=== PATIENT | male | born 1970 | race Hispanic/Latino ===

== ENCOUNTER → 2018-01-15 | Outpatient (CLI) | payer OTHER ==
[~2018-01-15] MED LIST: AEC81 PO; CHOL4PAC21 PO; DICY20 PO; LISI-617 PO; METO-391 PO
[2018-01-15 11:26] LABS: OCCULT BLOOD STOOL SINGLE ONLY POSITIVE (NEGATIVE)
== END | disposition home or self-care (01) ==
LOC: LAB 09:40
PROVIDERS: ATTEND Internal Medicine
DX: K90.9 Intestinal malabsorption, unspecified (principal); R19.7 Diarrhea, unspecified; F32.9 Major depressive disorder, single episode, unspecified; I10 Essential (primary) hypertension; E78.5 Hyperlipidemia, unspecified; I48.0 Paroxysmal atrial fibrillation; K21.9 Gastro-esophageal reflux disease without esophagitis
CPT/HCPCS: 36415; 82270; 82941; 84260; 87046; 87177; 87205; 87324

== ENCOUNTER 2018-02-19 14:33 | Inpatient (IN) | payer OTHER ==
[~2018-02-19] VITALS: Ht 180.3 cm; Wt 119.8 kg
[2018-02-19 14:57] LABS: BASOPHILS % (AUTO) 0.7 % (0.0-5.0); EOSINOPHILS % (AUTO) 2.9 % (0.0-8.0); HEMATOCRIT 43.7 % (42-54); LYMPHOCYTES % (AUTO) 24.3 % (21.0-51.0); MEAN CORPUSCULAR HEMOGLOBIN 26.8 pg (27.0-33.0); MEAN CORPUSCULAR HGB CONC 32.5 g/dL (32.0-36.0); MEAN CORPUSCULAR VOLUME 82.5 fL (79-99); MONOCYTES % (AUTO) 5.5 % (3.0-13.0); NEUTROPHILS % (AUTO) 66.6 % (40.0-77.0); PLATELET COUNT (AUTO) 367 K/uL (130-400); RED CELL DISTRIBUTION WIDTH 14.6 % (11.0-15.5); WHITE BLOOD COUNT (AUTO) 9.9 K/uL (4.8-10.8)
[2018-02-19 15:07] LABS: INR 1.02 (0.85-1.15); PARTIAL THROMBOPLASTIN TIME 28.8 SEC (26.3-35.5); PROTHROMBIN TIME 10.7 SEC (9.6-11.6)
[2018-02-19 15:09] LABS: CREATININE 1.3 mg/dL (0.5-1.5); POTASSIUM 3.5 mmol/L (3.5-5.1)
[2018-02-19] MEDS ORDERED: DILTIAZEM HCL 5 MG/ML 5 ML VIAL IVP SCH (15:15)
[2018-02-19 15:17] LABS: BILIRUBIN,TOTAL 0.6 mg/dL (0.2-1.0); TOTAL PROTEIN, SERUM 7.5 g/dL (6.0-8.3)
[2018-02-19 15:18] LABS: CREATINE KINASE, TOTAL 72 U/L (21-232); MYOGLOBIN 45 ng/mL (10-92); TROPONIN I < 0.04 ng/mL (0.00-0.06)
[2018-02-19] MEDS ORDERED: ASPIRIN 325 MG TABLET ONE (19:47)
[2018-02-19] MEDS ORDERED: NITROGLYCERIN 0.4 MG SL TAB SL ONE (20:04)
[2018-02-19] MEDS ORDERED: SODIUM CHLORIDE 0.9% 1000ML 1,000 ML IV SCH (23:51)
[2018-02-20] MEDS ORDERED: ACETAMINOPHEN 325 MG TAB PO PRN
[2018-02-20] MEDS ORDERED: NITROGLYCERIN 0.4 MG SL TAB SL PRN
[2018-02-20] MEDS ORDERED: ONDANSETRON HCL MDV 20ML 2 MG/ML VIAL IV PRN
[2018-02-20] MEDS ORDERED: SODIUM CHLORIDE 0.9% 1000ML 1,000 ML IV ONE (01:10)
[2018-02-20 06:03] LABS: BASOPHILS % (AUTO) 0.6 % (0.0-5.0); EOSINOPHILS % (AUTO) 4.2 % (0.0-8.0); LYMPHOCYTES % (AUTO) 29.2 % (21.0-51.0); MEAN CORPUSCULAR HEMOGLOBIN 26.7 pg (27.0-33.0); MEAN CORPUSCULAR HGB CONC 32.6 g/dL (32.0-36.0); MEAN CORPUSCULAR VOLUME 81.9 fL (79-99); MONOCYTES % (AUTO) 9.2 % (3.0-13.0); NEUTROPHILS % (AUTO) 56.8 % (40.0-77.0); PLATELET COUNT (AUTO) 285 K/uL (130-400); RED CELL DISTRIBUTION WIDTH 14.4 % (11.0-15.5); WHITE BLOOD COUNT (AUTO) 8.6 K/uL (4.8-10.8)
[2018-02-20 06:22] LABS: ALBUMIN 2.6 g/dL (3.5-5.0); BILIRUBIN,TOTAL 0.5 mg/dL (0.2-1.0); MAGNESIUM 2.1 mg/dL (1.80-2.40); POTASSIUM 3.7 mmol/L (3.5-5.1); TOTAL PROTEIN, SERUM 6.3 g/dL (6.0-8.3)
[2018-02-20] MEDS ORDERED: METOPROLOL TARTRATE 50 MG TAB PO SCH (09:00)
[2018-02-20] MEDS ORDERED: PANTOPRAZOLE SODIUM 40 MG TABLET.DR PO SCH (09:00)
[2018-02-20] MEDS ORDERED: ENOXAPARIN SODIUM 100 MG/1 ML SQ SCH (09:00)
[2018-02-20] MEDS ORDERED: METOPROLOL TARTRATE 50 MG TAB ONE ×2 (09:17→10:20)
[2018-02-20] MEDS ORDERED: ENOXAPARIN SODIUM 100 MG/1 ML SQ ONE (09:17)
[2018-02-20] MEDS ORDERED: PANTOPRAZOLE SODIUM 40 MG TABLET.DR PO ONE (09:18)
== END 2018-02-20 12:45 | disposition home or self-care (01) | DRG 641 ==
LOC: EDH 14:33 → EDHIP 20:00
PROVIDERS: ADMIT Internal Medicine; ATTEND Internal Medicine
DX: E86.0 Dehydration (principal); E66.01 Morbid (severe) obesity due to excess calories; I48.0 Paroxysmal atrial fibrillation; E78.00 Pure hypercholesterolemia, unspecified; K21.9 Gastro-esophageal reflux disease without esophagitis; E78.5 Hyperlipidemia, unspecified; Z82.49 Family history of ischemic heart disease and other diseases of the circulatory system; Z83.3 Family history of diabetes mellitus; Z68.36 Body mass index [BMI] 36.0-36.9, adult
CPT/HCPCS: 36415; 71045; 80053; 82550; 83735; 83874; 84484; 85025; 85610; 85730; 93005; J1650; J3490; J7030

== ENCOUNTER 2018-05-28 08:10 | Emergency (ER) | payer OTHER ==
[2018-05-28] MEDS ORDERED: SODIUM CHLORIDE 0.9% 1000ML 1,000 ML IV ONE (08:55)
[2018-05-28] MEDS ORDERED: KETOROLAC TROMETHAMINE 30MG/ML ONE (08:55)
[2018-05-28] MEDS ORDERED: ONDANSETRON HCL 4 MG/2 ML VIAL ONE (08:55)
[2018-05-28 08:57] LABS: APPEARANCE,URINE CLOUDY (CLEAR); BILIRUBIN,URINE NEGATIVE (NEGATIVE); COLOR,URINE YELLOW (YELLOW); GLUCOSE, URINE (UA) NEGATIVE (NEGATIVE); KETONES,URINE NEGATIVE (NEGATIVE); LEUKOCYTE ESTERASE ,URINE NEGATIVE (NEGATIVE); NITRATE,URINE NEGATIVE (NEGATIVE); OCCULT BLOOD,URINE LARGE (NEGATIVE); PH,URINE 5.5 (5.0-8.0); PROTEIN,URINE TRACE (NEGATIVE); UROBILINOGEN,URINE 0.2 mg/dL (0.2-1.0)
[2018-05-28 09:01] LABS: BACTERIA,URINE Rare /HPF (None Seen); MUCUS,URINE Few LPF (None Seen); RBC,URINE TNTC /HPF (0-1); SQUAMOUS EPITHELIAL CELL,UR Rare /HPF (0-2)
[2018-05-28 09:03] LABS: POTASSIUM 3.7 mmol/L (3.5-5.1)
[2018-05-30] MEDS ORDERED: TAMS0.4C32 PO (15:36)
[2018-05-30] MEDS ORDERED: CEPH500T PO (15:36)
[2018-05-30] MEDS ORDERED: HYDR-4060 PO (15:36)
[2018-05-30] MEDS ORDERED: ONDA4TAB10 PO (15:36)
[2018-05-30] MEDS ORDERED: METO-408 PO (15:36)
[2018-05-30] MEDS ORDERED: IBUP-2077 PO (15:36)
[2018-06-01] MEDS ORDERED: LEVO500T2 PO (09:02)
== END 2018-05-28 10:27 | disposition home or self-care (01) ==
LOC: EDH 08:10
DX: N13.2 Hydronephrosis with renal and ureteral calculous obstruction (principal); R11.2 Nausea with vomiting, unspecified; I48.91 Unspecified atrial fibrillation; I10 Essential (primary) hypertension; K21.9 Gastro-esophageal reflux disease without esophagitis; Z90.49 Acquired absence of other specified parts of digestive tract; Z88.1 Allergy status to other antibiotic agents
CPT/HCPCS: 36415; 74176; 80048; 81001; 83690; 96361; 96374; 96375; 99284; J1885; J2405; J7030

== ENCOUNTER 2018-05-30 06:51 | Inpatient (IN) | payer OTHER | END 2018-06-01 15:12 | disposition home or self-care (01) | LOC: EDH 06:51 → EDHIP 09:56 → 3BH 14:04 | DX: N13.1 Hydronephrosis with ureteral stricture, not elsewhere classified (principal); I10 Essential (primary) hypertension ==

== ENCOUNTER → 2018-07-26 | Outpatient (CLI) | payer OTHER ==
[~2018-07-26] MED LIST changes: +HYDR-4060 PO; +IBUP-2077 PO; +LEVO500T2 PO; +METO-408 PO; +ONDA4TAB10 PO; +TAMS0.4C32 PO
== END | disposition home or self-care (01) ==
LOC: RAH 13:46
PROVIDERS: ATTEND Internal Medicine Nephrology
DX: J34.1 Cyst and mucocele of nose and nasal sinus (principal); R25.1 Tremor, unspecified
CPT/HCPCS: 70551

== ENCOUNTER 2018-08-12 19:36 | Emergency (ER) | payer OTHER ==
[2018-08-12] MEDS ORDERED: ONDANSETRON HCL 4 MG/2 ML VIAL ONE (20:19)
[2018-08-12] MEDS ORDERED: KETOROLAC TROMETHAMINE 30MG/ML ONE (20:19)
[2018-08-12 20:24] LABS: BASOPHILS % (AUTO) 0.8 % (0.0-5.0); HEMATOCRIT 45.8 % (42-54); LYMPHOCYTES % (AUTO) 19.9 % (21.0-51.0); MEAN CORPUSCULAR HEMOGLOBIN 27.2 pg (27.0-33.0); MEAN CORPUSCULAR HGB CONC 33.3 g/dL (32.0-36.0); MEAN CORPUSCULAR VOLUME 81.7 fL (79-99); NEUTROPHILS % (AUTO) 71.3 % (40.0-77.0); PLATELET COUNT (AUTO) 319 K/uL (130-400); RED CELL DISTRIBUTION WIDTH 15.4 % (11.0-15.5); WHITE BLOOD COUNT (AUTO) 11.2 K/uL (4.8-10.8)
[2018-08-12 20:24] LABS: APPEARANCE,URINE Clear (CLEAR); BILIRUBIN,URINE Negative (NEGATIVE); COLOR,URINE Yellow (YELLOW); GLUCOSE, URINE (UA) Negative (NEGATIVE); KETONES,URINE Negative (NEGATIVE); LEUKOCYTE ESTERASE ,URINE Small (NEGATIVE); NITRATE,URINE Negative (NEGATIVE); OCCULT BLOOD,URINE Large (NEGATIVE); PROTEIN,URINE Negative (NEGATIVE); UROBILINOGEN,URINE 0.2 mg/dL (0.2-1.0)
[2018-08-12] MEDS ORDERED: SODIUM CHLORIDE 0.9% 1000ML 1,000 ML IV ONE (20:25)
[2018-08-12 20:31] LABS: AMPHET/METH SCREEN,URINE NEGATIVE (NEGATIVE); BARBITURATE SCREEN, URINE NEGATIVE (NEGATIVE); BENZODIAZEPINES SCREEN,URINE NEGATIVE (NEGATIVE); CANNABINOID SCREEN,URINE NEGATIVE (NEGATIVE); COCAINE SCREEN,URINE NEGATIVE (NEGATIVE); OPIATE SCREEN,URINE NEGATIVE (NEGATIVE); PHENCYCLIDINE SCREEN,URINE NEGATIVE (NEGATIVE)
[2018-08-12 20:32] LABS: BACTERIA,URINE Few /HPF (None Seen); SQUAMOUS EPITHELIAL CELL,UR Rare /HPF (0-2)
[2018-08-12 20:35] LABS: MUCUS,URINE Few LPF (None Seen)
[2018-08-12 20:37] LABS: CREATININE 1.3 mg/dL (0.5-1.5); INR 0.93 (0.85-1.15); PARTIAL THROMBOPLASTIN TIME 26.4 SEC (26.3-35.5); PROTHROMBIN TIME 9.8 SEC (9.6-11.6)
[2018-08-12 20:41] LABS: ALBUMIN 3.8 g/dL (3.5-5.0); BILIRUBIN,TOTAL 0.4 mg/dL (0.2-1.0)
[2018-08-12] MEDS ORDERED: TAMSULOSIN HCL 0.4 MG CAP.ER.24H ONE (21:12)
[2018-08-12] MEDS ORDERED: TRAMADOL HCL 50 MG TABLET ONE (21:12)
== END 2018-08-12 23:32 | disposition home or self-care (01) ==
LOC: EDH 19:36
DX: N20.2 Calculus of kidney with calculus of ureter (principal); I48.91 Unspecified atrial fibrillation; K21.9 Gastro-esophageal reflux disease without esophagitis; I10 Essential (primary) hypertension; Z87.442 Personal history of urinary calculi; Z88.1 Allergy status to other antibiotic agents
CPT/HCPCS: 36415; 71045; 74176; 80053; 80305; 81001; 82550; 83690; 84484; 85025; 85610; 85730; 93005; 96361; 96374; 96375; 99284; J1885; J2405; J7030

== ENCOUNTER → 2019-01-20 | Outpatient (CLI) | payer OTHER ==
[~2019-01-20] VITALS: Ht 180.3 cm; Wt 122.0 kg
[~2019-01-20] MED LIST changes: -CHOL4PAC21 PO; -DICY20 PO; +FLEC100T3 PO; -HYDR-4060 PO; -IBUP-2077 PO; -LEVO500T2 PO; -LISI-617 PO; -METO-408 PO; -ONDA4TAB10 PO; +REGADENOSON 0.4 MG/5 ML PF SYG IVP SCH; -TAMS0.4C32 PO
== END | disposition home or self-care (01) ==
LOC: SHCH 08:01
PROVIDERS: ATTEND Internal Medicine Cardiovascular Disease
DX: I48.2 Chronic atrial fibrillation (principal)
CPT/HCPCS: 78452; 93017; 96374; A9500 ×2; J2785

== ENCOUNTER 2019-09-30 20:32 | Emergency (ER) | payer OTHER ==
[~2019-09-30 20:32] MED LIST changes: -METO-391 PO; +METO50TA9 PO; -REGADENOSON 0.4 MG/5 ML PF SYG IVP SCH
[2019-09-30] MEDS ORDERED: ONDANSETRON HCL 4 MG/2 ML VIAL ONE (20:49)
[2019-09-30] MEDS ORDERED: MORPHINE SULFATE 4 MG/1ML SYG ONE (20:49)
[2019-09-30 20:55] LABS: APPEARANCE,URINE Cloudy (CLEAR); BILIRUBIN,URINE Negative (NEGATIVE); COLOR,URINE Yellow (YELLOW); GLUCOSE, URINE (UA) Negative (NEGATIVE); KETONES,URINE Negative (NEGATIVE); LEUKOCYTE ESTERASE ,URINE Moderate (NEGATIVE); NITRATE,URINE Negative (NEGATIVE); OCCULT BLOOD,URINE Large (NEGATIVE); PROTEIN,URINE POS 1+ mg/dL (NEGATIVE)
[2019-09-30 21:10] LABS: BASOPHILS % (AUTO) 0.3 % (0.0-5.0); EOSINOPHILS % (AUTO) 2.5 % (0.0-8.0); HEMATOCRIT 45.4 % (42-54); LYMPHOCYTES % (AUTO) 27.2 % (21.0-51.0); MEAN CORPUSCULAR HEMOGLOBIN 27.8 pg (27.0-33.0); MEAN CORPUSCULAR VOLUME 84.1 fL (79-99); MONOCYTES % (AUTO) 7.4 % (3.0-13.0); NEUTROPHILS % (AUTO) 62.3 % (40.0-77.0); PLATELET COUNT (AUTO) 300 K/uL (130-400); RED CELL DISTRIBUTION WIDTH 13.6 % (11.0-15.5); WHITE BLOOD COUNT (AUTO) 11.6 K/uL (4.8-10.8)
[2019-09-30 21:13] LABS: RBC,URINE >100 /HPF (0-1)
[2019-09-30 21:15] LABS: BACTERIA,URINE Few /HPF (None Seen); SQUAMOUS EPITHELIAL CELL,UR Few /HPF (0-2)
[2019-09-30 21:16] LABS: HYALINE CASTS, URINE 0-1 /LPF (0-1 /LPF)
[2019-09-30 21:17] LABS: CREATININE 1.3 mg/dL (0.5-1.5); INR 0.92 (0.85-1.15); PARTIAL THROMBOPLASTIN TIME 26.2 SEC (26.3-35.5); POTASSIUM 3.8 mmol/L (3.5-5.1)
[2019-09-30 21:21] LABS: ALBUMIN 3.6 g/dL (3.5-5.0); BILIRUBIN,DIRECT 0.1 mg/dL (0.0-0.3); BILIRUBIN,TOTAL 0.6 mg/dL (0.2-1.0); TOTAL PROTEIN, SERUM 7.7 g/dL (6.0-8.3)
[2019-09-30] MEDS ORDERED: KETOROLAC TROMETHAMINE 30MG/ML ONE (21:34)
[2019-09-30] MEDS ORDERED: HYDROMORPHONE 1 MG/1 ML AMP ONE (21:35)
== END 2019-09-30 23:15 | disposition home or self-care (01) ==
LOC: EDH 20:32
DX: N20.0 Calculus of kidney (principal); K21.9 Gastro-esophageal reflux disease without esophagitis; I10 Essential (primary) hypertension; I48.91 Unspecified atrial fibrillation; Z88.1 Allergy status to other antibiotic agents; Z79.899 Other long term (current) drug therapy; Z90.49 Acquired absence of other specified parts of digestive tract
CPT/HCPCS: 36415; 74176; 80048; 80076; 81001; 82550; 83690; 84484; 85025; 85610; 85730; 87088; 93005; 96374; 96375; 99285; J1170; J1885; J2270; J2405

== ENCOUNTER 2019-10-04 20:41 | Emergency (ER) | payer OTHER ==
[2019-10-04] MEDS ORDERED: KETOROLAC TROMETHAMINE 30MG/ML ONE (20:54)
[2019-10-04 21:02] LABS: BASOPHILS % (AUTO) 0.3 % (0.0-5.0); EOSINOPHILS % (AUTO) 2.3 % (0.0-8.0); HEMATOCRIT 45.2 % (42-54); LYMPHOCYTES % (AUTO) 21.1 % (21.0-51.0); MEAN CORPUSCULAR HEMOGLOBIN 27.9 pg (27.0-33.0); MEAN CORPUSCULAR HGB CONC 33.6 g/dL (32.0-36.0); MEAN CORPUSCULAR VOLUME 82.9 fL (79-99); MONOCYTES % (AUTO) 7.8 % (3.0-13.0); NEUTROPHILS % (AUTO) 68.1 % (40.0-77.0); PLATELET COUNT (AUTO) 340 K/uL (130-400); RED BLOOD CELL COUNT(AUTO) 5.45 MIL/uL (4.50-6.20); RED CELL DISTRIBUTION WIDTH 13.2 % (11.0-15.5); WHITE BLOOD COUNT (AUTO) 11.2 K/uL (4.8-10.8)
[2019-10-04 21:15] LABS: CREATININE 1.7 mg/dL (0.5-1.5); POTASSIUM 3.1 mmol/L (3.5-5.1)
[2019-10-04] MEDS ORDERED: HYDROMORPHONE 1 MG/1 ML AMP ONE (21:43)
[2019-10-04 22:00] LABS: APPEARANCE,URINE Cloudy (CLEAR); BILIRUBIN,URINE Negative (NEGATIVE); COLOR,URINE Yellow (YELLOW); GLUCOSE, URINE (UA) Negative (NEGATIVE); KETONES,URINE Negative (NEGATIVE); LEUKOCYTE ESTERASE ,URINE Trace (NEGATIVE); NITRATE,URINE Negative (NEGATIVE); OCCULT BLOOD,URINE Large (NEGATIVE); PROTEIN,URINE POS 1+ mg/dL (NEGATIVE); UROBILINOGEN,URINE 0.2 mg/dL (0.2-1.0)
[2019-10-04 22:09] LABS: RBC,URINE 26-50 /HPF (0-1)
[2019-10-04 22:10] LABS: BACTERIA,URINE Rare /HPF (None Seen); SQUAMOUS EPITHELIAL CELL,UR Rare /HPF (0-2)
[2019-10-05] MEDS ORDERED: POTASSIUM CHLORIDE 20 MEQ ERTAB PO ONE (00:47)
== END 2019-10-05 01:02 | disposition home or self-care (01) ==
LOC: EDH 20:41
DX: N20.0 Calculus of kidney (principal); R79.89 Other specified abnormal findings of blood chemistry; I10 Essential (primary) hypertension; K21.9 Gastro-esophageal reflux disease without esophagitis; I48.91 Unspecified atrial fibrillation; Z79.899 Other long term (current) drug therapy; Z90.49 Acquired absence of other specified parts of digestive tract
CPT/HCPCS: 36415; 76770; 80048; 81001; 85025; 87088; 96374; 99284; J1170; J1885

== ENCOUNTER 2020-04-05 03:38 | Observation (INO) | payer OTHER ==
[~2020-04-05] VITALS: Ht 180.3 cm; Wt 135.2 kg
[2020-04-05] MEDS ORDERED: DILTIAZEM HCL 125 MG/25 ML VIAL IV ONE (04:00)
[2020-04-05] MEDS ORDERED: SODIUM CHLORIDE 0.9% 100 ML IV ONE (04:00)
[2020-04-05] MEDS ORDERED: DILTIAZEM HCL 5 MG/ML 10 ML VIAL IV ONE (04:00)
[2020-04-05] MEDS ORDERED: ENOXAPARIN SODIUM 40 MG/0.4 ML SYRINGE SQ ONE (04:39)
[2020-04-05] MEDS ORDERED: ENOXAPARIN SODIUM 100 MG/1 ML SQ ONE (04:39)
[2020-04-05] MEDS ORDERED: ACETAMINOPHEN 325 MG TAB PO PRN ×2 (05:30)
[2020-04-05] MEDS ORDERED: NITROGLYCERIN 0.4 MG SL TAB SL PRN (05:30)
[2020-04-05] MEDS ORDERED: LACTULOSE 20 GM/30 ML UDCUP PO PRN (05:30)
[2020-04-05] MEDS ORDERED: DILTIAZEM HCL 125 MG/25 ML 125 MG in SODIUM CHLORIDE 0.9% 100 ML IV SCH (05:30)
[2020-04-05] MEDS ORDERED: ONDANSETRON HCL 4 MG/2 ML VIAL IV PRN (05:30)
[2020-04-05 05:59] LABS: BILIRUBIN,TOTAL 0.4 mg/dL (0.2-1.0); CREATININE 1.3 mg/dL (0.5-1.5); CRP QUANTITATIVE 8.1 mg/L (0.00-9.0); MAGNESIUM 2.6 mg/dL (1.80-2.40)
[2020-04-05 06:00] LABS: ALBUMIN 3.2 g/dL (3.5-5.0); TOTAL PROTEIN, SERUM 7.3 g/dL (6.0-8.3)
[2020-04-05 06:06] LABS: BASOPHILS % (AUTO) 0.5 % (0.0-5.0); EOSINOPHILS % (AUTO) 3.5 % (0.0-8.0); HEMATOCRIT 48.3 % (42-54); LYMPHOCYTES % (AUTO) 31.1 % (21.0-51.0); MEAN CORPUSCULAR HEMOGLOBIN 28.2 pg (27.0-33.0); MEAN CORPUSCULAR HGB CONC 32.7 g/dL (32.0-36.0); MEAN CORPUSCULAR VOLUME 86.3 fL (79-99); MONOCYTES % (AUTO) 9.5 % (3.0-13.0); PLATELET COUNT (AUTO) 320 K/uL (130-400); RED CELL DISTRIBUTION WIDTH 13.2 % (11.0-15.5); WHITE BLOOD COUNT (AUTO) 11.4 K/uL (4.8-10.8)
[2020-04-05 06:08] LABS: B-TYPE NATRIURETIC PEPTIDE 22 pg/mL (0-100)
[2020-04-05 06:14] LABS: INR 0.89 (0.85-1.15); PROTHROMBIN TIME 9.7 SEC (9.6-11.6)
[2020-04-05 06:38] LABS: APPEARANCE,URINE Clear (CLEAR); BILIRUBIN,URINE Negative (NEGATIVE); COLOR,URINE Yellow (YELLOW); GLUCOSE, URINE (UA) Negative (NEGATIVE); KETONES,URINE Negative (NEGATIVE); LEUKOCYTE ESTERASE ,URINE Negative (NEGATIVE); NITRATE,URINE Negative (NEGATIVE); OCCULT BLOOD,URINE Trace (NEGATIVE); PROTEIN,URINE Negative (NEGATIVE); UROBILINOGEN,URINE 0.2 mg/dL (0.2-1.0)
[2020-04-05 06:39] LABS: BACTERIA,URINE None Seen /HPF (None Seen); RBC,URINE 0-1 /HPF (0-1); SQUAMOUS EPITHELIAL CELL,UR Rare /HPF (0-2); WBC,URINE None Seen /HPF (0-1)
[2020-04-05 06:45] LABS: AMPHET/METH SCREEN,URINE NEGATIVE (NEGATIVE); BARBITURATE SCREEN, URINE NEGATIVE (NEGATIVE); BENZODIAZEPINES SCREEN,URINE NEGATIVE (NEGATIVE); CANNABINOID SCREEN,URINE NEGATIVE (NEGATIVE); COCAINE SCREEN,URINE NEGATIVE (NEGATIVE); OPIATE SCREEN,URINE NEGATIVE (NEGATIVE); PHENCYCLIDINE SCREEN,URINE NEGATIVE (NEGATIVE)
[2020-04-05] MEDS ORDERED: ENOXAPARIN SODIUM 40 MG/0.4 ML SYRINGE SQ SCH (09:00)
[2020-04-05] MEDS ORDERED: METOPROLOL TARTRATE 25 MG TAB PO SCH (09:00)
[2020-04-05] MEDS ORDERED: ASPIRIN 325 MG TABLET PO SCH (09:00)
[2020-04-05] MEDS ORDERED: FAMOTIDINE 20MG TAB 20 MG TAB PO SCH (09:00)
[2020-04-05 09:05] VITALS: BP 107/58
[2020-04-05] MEDS ORDERED: ASPIRIN 81 MG EC TAB ONE (09:23)
[2020-04-05 09:27] VITALS: BP 94/50
[2020-04-05 11:00] VITALS: BP 111/71
[2020-04-05] MEDS ORDERED: METOPROLOL SUCCINATE 50 MG TAB.SR.24H PO ONE (13:04)
[2020-04-05] MEDS ORDERED: METOPROLOL SUCCINATE 50 MG TAB.SR.24H PO SCH (13:15)
[2020-04-05 16:00] VITALS: BP 122/75
== END 2020-04-05 19:30 | disposition home or self-care (01) ==
LOC: EDH 03:38 → EDHIP 04:40 → INTOOBSV 04:40 → 4DH 08:37
PROVIDERS: ADMIT Internal Medicine; ATTEND Internal Medicine
DX: I48.0 Paroxysmal atrial fibrillation (principal); Z20.828 Contact with and (suspected) exposure to other viral communicable diseases; I10 Essential (primary) hypertension; E66.01 Morbid (severe) obesity due to excess calories; Z90.49 Acquired absence of other specified parts of digestive tract; Z79.82 Long term (current) use of aspirin; Z79.01 Long term (current) use of anticoagulants; Z79.899 Other long term (current) drug therapy; Z88.1 Allergy status to other antibiotic agents; Z68.41 Body mass index [BMI] 40.0-44.9, adult
CPT/HCPCS: 36415; 71045; 80053; 80305; 81001; 82550; 83735; 83880; 84443; 84484; 85025; 85610; 85730; 86140; 87426; 93005 ×2; 99285; G0378 ×15; J1650 ×2; J3490 ×2

== ENCOUNTER 2020-05-30 21:40 | Inpatient (IN) | payer OTHER ==
[~2020-05-30] VITALS: Ht 180.3 cm; Wt 142.4 kg
[2020-05-30 22:14] LABS: BASOPHILS % (AUTO) 0.3 % (0.0-5.0); EOSINOPHILS % (AUTO) 2.8 % (0.0-8.0); HEMATOCRIT 48.5 % (42-54); LYMPHOCYTES % (AUTO) 26.1 % (21.0-51.0); MEAN CORPUSCULAR HEMOGLOBIN 27.9 pg (27.0-33.0); MEAN CORPUSCULAR HGB CONC 32.6 g/dL (32.0-36.0); MEAN CORPUSCULAR VOLUME 85.5 fL (79-99); NEUTROPHILS % (AUTO) 62.5 % (40.0-77.0); PLATELET COUNT (AUTO) 317 K/uL (130-400); RED BLOOD CELL COUNT(AUTO) 5.67 MIL/uL (4.50-6.20); RED CELL DISTRIBUTION WIDTH 13.6 % (11.0-15.5); WHITE BLOOD COUNT (AUTO) 11.5 K/uL (4.8-10.8)
[2020-05-30 22:26] LABS: AMPHET/METH SCREEN,URINE NEGATIVE (NEGATIVE); BARBITURATE SCREEN, URINE NEGATIVE (NEGATIVE); BENZODIAZEPINES SCREEN,URINE NEGATIVE (NEGATIVE); CANNABINOID SCREEN,URINE NEGATIVE (NEGATIVE); COCAINE SCREEN,URINE NEGATIVE (NEGATIVE); OPIATE SCREEN,URINE NEGATIVE (NEGATIVE); PHENCYCLIDINE SCREEN,URINE NEGATIVE (NEGATIVE)
[2020-05-30] MEDS ORDERED: 0.9%NACL 1000ML 1,000 ML IV ONE (22:29)
[2020-05-30] MEDS ORDERED: DILTIAZEM 50MG VIAL IV ONE (22:30)
[2020-05-30 22:44] LABS: CREATININE 1.3 mg/dL (0.5-1.5); POTASSIUM 3.7 mmol/L (3.5-5.1)
[2020-05-30 22:49] LABS: ALBUMIN 3.4 g/dL (3.5-5.0); BILIRUBIN,TOTAL 0.2 mg/dL (0.2-1.0); TOTAL PROTEIN, SERUM 8.1 g/dL (6.0-8.3)
[2020-05-30 23:13] LABS: INR 0.96 (0.85-1.15); PROTHROMBIN TIME 10.3 SEC (9.6-11.6)
[2020-05-30 23:14] LABS: PARTIAL THROMBOPLASTIN TIME 27.1 SEC (26.3-35.5)
[2020-05-31] MEDS ORDERED: DILTIAZEM 125 MG/25 ML INJ 125 MG in 0.9%NACL 100ML 100 ML IV PRN (01:00)
[2020-05-31] MEDS ORDERED: DILTIAZEM 25MG INJ IVP PRN (01:00)
[2020-05-31] MEDS ORDERED: DILTIAZEM 50MG VIAL IV ONE (02:12)
[2020-05-31] MEDS ORDERED: 0.9%NACL 100ML 100 ML IV ONE (02:16)
[2020-05-31] MEDS: ASPIRIN 81MG CHEW TAB PO SCH (09:00)
[2020-05-31] MEDS ORDERED: FAMOTIDINE 20MG VIAL IV SCH (09:00)
[2020-05-31] MEDS ORDERED: METOPROLOL TARTRATE 25 MG TAB PO SCH (09:00)
[2020-05-31] MEDS ORDERED: METOPROLOL SUCCINATE 50 MG TAB.SR.24H PO SCH (09:00)
[2020-05-31] MEDS: CEFTRIAXONE 1G VIAL IVP SCH (09:30)
[2020-05-31] MEDS ORDERED: ASPIRIN 81MG CHEW TAB ONE (09:38)
[2020-05-31] MEDS ORDERED: FAMOTIDINE 20MG VIAL IV ONE (09:39)
[2020-05-31 09:54] LABS: BASOPHILS % (AUTO) 0.5 % (0.0-5.0); HEMATOCRIT 45.7 % (42-54); MEAN CORPUSCULAR HEMOGLOBIN 27.3 pg (27.0-33.0); MEAN CORPUSCULAR HGB CONC 31.7 g/dL (32.0-36.0); MEAN CORPUSCULAR VOLUME 85.9 fL (79-99); MONOCYTES % (AUTO) 7.9 % (3.0-13.0); NEUTROPHILS % (AUTO) 63.3 % (40.0-77.0); PLATELET COUNT (AUTO) 298 K/uL (130-400); RED BLOOD CELL COUNT(AUTO) 5.32 MIL/uL (4.50-6.20); RED CELL DISTRIBUTION WIDTH 13.8 % (11.0-15.5); WHITE BLOOD COUNT (AUTO) 9.9 K/uL (4.8-10.8)
[2020-05-31 10:05] LABS: CREATININE 1.3 mg/dL (0.5-1.5); POTASSIUM 4.6 mmol/L (3.5-5.1)
[2020-05-31 10:09] LABS: BILIRUBIN,TOTAL 0.5 mg/dL (0.2-1.0); TOTAL PROTEIN, SERUM 6.9 g/dL (6.0-8.3)
[2020-05-31] MEDS ORDERED: CEFTRIAXONE 1G VIAL ONE (11:07)
[2020-05-31] MEDS ORDERED: 0.9%NACL 50ML 50 ML IV ONE (11:08)
[2020-05-31] MEDS ORDERED: FAMOTIDINE 20MG TAB ONE (21:28)
[2020-05-31] MEDS ORDERED: METOPROLOL TARTRATE 50 MG TAB ONE (21:28)
[2020-06-01] VITALS (7 sets, daily range): BP systolic 126–141; BP diastolic 73–95
[2020-06-01] MEDS ORDERED: METO-391 PO ×2 (02:17→02:18)
[2020-06-01 08:45] LABS: BASOPHILS % (AUTO) 0.4 % (0.0-5.0); EOSINOPHILS % (AUTO) 2.4 % (0.0-8.0); HEMATOCRIT 45.1 % (42-54); LYMPHOCYTES % (AUTO) 19.3 % (21.0-51.0); MEAN CORPUSCULAR HGB CONC 32.4 g/dL (32.0-36.0); MEAN CORPUSCULAR VOLUME 86.4 fL (79-99); MONOCYTES % (AUTO) 5.8 % (3.0-13.0); NEUTROPHILS % (AUTO) 71.8 % (40.0-77.0); PLATELET COUNT (AUTO) 287 K/uL (130-400); RED BLOOD CELL COUNT(AUTO) 5.22 MIL/uL (4.50-6.20); RED CELL DISTRIBUTION WIDTH 13.7 % (11.0-15.5); WHITE BLOOD COUNT (AUTO) 10.3 K/uL (4.8-10.8)
[2020-06-01] MEDS ORDERED: ACETAMINOPHEN 325 MG TAB PO PRN (08:45)
[2020-06-01] MEDS: CEFTRIAXONE 1G VIAL IVP SCH (08:52)
[2020-06-01] MEDS: FAMOTIDINE 20MG TAB PO SCH ×2 (08:52→20:42)
[2020-06-01] MEDS: ASPIRIN 81MG CHEW TAB PO SCH (08:52)
[2020-06-01 08:57] LABS: CREATININE 1.3 mg/dL (0.5-1.5); POTASSIUM 4.3 mmol/L (3.5-5.1)
[2020-06-01] MEDS ORDERED: METOPROLOL SUCCINATE 50 MG TAB.SR.24H PO SCH ×2 (09:00)
[2020-06-01 09:01] LABS: ALBUMIN 3.2 g/dL (3.5-5.0); BILIRUBIN,TOTAL 0.6 mg/dL (0.2-1.0); TOTAL PROTEIN, SERUM 7.1 g/dL (6.0-8.3)
[2020-06-01] MEDS: FLECAINIDE ACETATE 100 MG TABLET PO SCH (20:43)
[2020-06-02 03:44] VITALS: BP 124/72
[2020-06-02] MEDS ORDERED: FLEC50TA3 PO (08:47)
[2020-06-02] MEDS ORDERED: METO-391 PO (08:47)
[2020-06-02] MEDS ORDERED: ASPI-891 PO (08:47)
[2020-06-02 08:56] VITALS: BP 135/92
[2020-06-02] MEDS ORDERED: ASPIRIN 325MG EC TAB PO SCH (09:00)
[2020-06-02] MEDS ORDERED: METOPROLOL SUCCINATE 50 MG TAB.SR.24H PO SCH (09:00)
[2020-06-02] MEDS: FAMOTIDINE 20MG TAB PO SCH (09:02)
[2020-06-02] MEDS: FLECAINIDE ACETATE 100 MG TABLET PO SCH (09:03)
[2020-06-02 11:55] VITALS: BP 139/81
== END 2020-06-02 14:15 | disposition home or self-care (01) | DRG 309 ==
LOC: EDH 21:40 → EDHIP 05-31 00:47 → 4CH 06-01 01:55
PROVIDERS: ADMIT Internal Medicine; ATTEND Internal Medicine
DX: I48.0 Paroxysmal atrial fibrillation (principal); Z68.41 Body mass index [BMI] 40.0-44.9, adult; K21.9 Gastro-esophageal reflux disease without esophagitis; E66.9 Obesity, unspecified; M10.9 Gout, unspecified; I25.10 Atherosclerotic heart disease of native coronary artery without angina pectoris; E78.5 Hyperlipidemia, unspecified; I34.0 Nonrheumatic mitral (valve) insufficiency; R74.8 Abnormal levels of other serum enzymes; I11.9 Hypertensive heart disease without heart failure; Z90.49 Acquired absence of other specified parts of digestive tract; Z87.442 Personal history of urinary calculi; Z82.49 Family history of ischemic heart disease and other diseases of the circulatory system; Z83.3 Family history of diabetes mellitus; Z79.82 Long term (current) use of aspirin; Z79.899 Other long term (current) drug therapy; Z88.1 Allergy status to other antibiotic agents
CPT/HCPCS: 36415; 71045; 80053; 80305; 83735; 84145; 84443; 84484; 85025; 85610; 85730; 87040; 93005; 93306; 93356; G0378; J0696; J3490; J7030

== ENCOUNTER → 2022-09-14 | Outpatient (CLI) | payer OTHER ==
[~2022-09-14] MED LIST changes: -AEC81 PO; +ASPI-891 PO; -FLEC100T3 PO; +FLEC50TA3 PO; +METO-391 PO; -METO50TA9 PO
[2022-09-14 12:16] LABS: BASOPHILS % (AUTO) 0.6 % (0.0-5.0); EOSINOPHILS % (AUTO) 4.3 % (0.0-8.0); HEMATOCRIT 45.2 % (42-54); LYMPHOCYTES % (AUTO) 26.4 % (21.0-51.0); MEAN CORPUSCULAR HEMOGLOBIN 27.1 pg (27.0-33.0); MEAN CORPUSCULAR HGB CONC 32.5 g/dL (32.0-36.0); MEAN CORPUSCULAR VOLUME 83.2 fL (79-99); MONOCYTES % (AUTO) 6.9 % (3.0-13.0); NEUTROPHILS % (AUTO) 61.3 % (40.0-77.0); PLATELET COUNT (AUTO) 267 K/uL (130-400); RED BLOOD CELL COUNT(AUTO) 5.43 MIL/uL (4.50-6.20); RED CELL DISTRIBUTION WIDTH 14.4 % (11.0-15.5); WHITE BLOOD COUNT (AUTO) 8.5 K/uL (4.8-10.8)
[2022-09-14 12:19] LABS: APPEARANCE,URINE CLEAR (CLEAR); BILIRUBIN,URINE NEGATIVE (NEGATIVE); COLOR,URINE LIGHT-YELLOW (YELLOW); GLUCOSE, URINE (UA) NEGATIVE (NEGATIVE); KETONES,URINE NEGATIVE (NEGATIVE); LEUKOCYTE ESTERASE ,URINE NEGATIVE Leu/uL (NEGATIVE); NITRATE,URINE NEGATIVE (NEGATIVE); PROTEIN,URINE NEGATIVE (NEGATIVE); UROBILINOGEN,URINE 0.2 mg/dL (0.2-1.0)
[2022-09-14 12:24] LABS: HEMOGLOBIN A1C 8.2 % (4.0-6.0)
[2022-09-14 12:29] LABS: MUCUS,URINE RARE LPF (None Seen); SQUAMOUS EPITHELIAL CELL,UR RARE /HPF (0-2); WBC,URINE 0-1 /HPF (0-1)
[2022-09-14 12:35] LABS: ALBUMIN 3.3 g/dL (3.5-5.0); CREATININE 1.1 mg/dL (0.5-1.5); POTASSIUM 4.1 mmol/L (3.5-5.1); THYROID STIMULATING HORMONE 1.31 uIU/mL (0.36-3.74); TOTAL PROTEIN, SERUM 7.2 g/dL (6.0-8.3)
== END | disposition home or self-care (01) ==
LOC: LAB 09:18
PROVIDERS: ATTEND Internal Medicine Cardiovascular Disease
DX: I48.0 Paroxysmal atrial fibrillation (principal); I10 Essential (primary) hypertension
CPT/HCPCS: 36415; 80053; 80061; 81001; 83036; 84443; 85025

== ENCOUNTER 2024-12-16 00:02 | Inpatient (IN) | payer OTHER ==
[~2024-12-16] VITALS: Ht 180.3 cm; Wt 116.8 kg
[2024-12-16] VITALS (7 sets, daily range): BP systolic 119–155; BP diastolic 74–86; PULSE 59–61; RESP 18–20; TEMP 97–97.8; O2SAT 100
[2024-12-16] MEDS: ASPIRIN 81MG CHEW TAB PO ONE (00:45)
[2024-12-16 00:47] LABS: IMMATURE GRANULOCYTE ABSOLUTE 0.02 K/uL (0-1); NUCLEATED RED BLOOD CELLS 0.0 % (0.0-0.19); PLATELET COUNT (AUTO) 310 K/uL (130-400); RED BLOOD CELL COUNT(AUTO) 5.79 MIL/uL (4.50-6.20); RED CELL DISTRIBUTION WIDTH 13.6 % (11.0-15.5); WHITE BLOOD COUNT (AUTO) 10.3 K/uL (4.8-10.8)
[2024-12-16 00:59] LABS: CREATINE KINASE, TOTAL 133.0 U/L (21-232); CREATININE 1.1 mg/dL (0.5-1.3); GLOMERULAR FILTR. RATE CALC 80.0 mL/min (>90); GLUCOSE,RANDOM 119.0 mg/dL (70-105); LDL DIRECT 92.0 mg/dL (0-99); SODIUM SERUM 141.0 mmol/L (136-145); UREA NITROGEN, BLOOD 13.0 mg/dL (7-18)
[2024-12-16] MEDS: PoTASSium chl 10% ELIXIR 20MEQ 20 MEQ/15 ML UDCUP PO ONE (01:20)
--- NOTE | 2024-12-16 01:20 | HMCIMG ---
EXAM: CR Chest, 1 view CLINICAL HISTORY: Shortness of breath. COMPARISON: Chest radiograph dated 05/30/2020. FINDINGS: The lungs show no infiltrates or other acute findings. No pleural effusion or pneumothorax. The cardiomediastinal silhouette is within normal limits. No acute osseous abnormality. IMPRESSION: No acute cardiopulmonary process is evident. No interval changes. /[place]
[2024-12-16] MEDS ORDERED: MAGNESIUM 2GM PREMIX 50ML 50 ML IV PRN (01:30)
[2024-12-16] MEDS ORDERED: PoTASSium chl 10% ELIXIR 20MEQ 20 MEQ/15 ML UDCUP PO PRN (01:30)
[2024-12-16] MEDS ORDERED: GLUCAGON 1MG KIT 1 MG ML IM PRN (01:30)
[2024-12-16] MEDS ORDERED: DEXTROSE 50%-WATER 50 ML DISP.SYRIN IV PRN (01:30)
--- NOTE | 2024-12-16 01:35 | NUR ---
REPORT GIVEN TO BOYD MCGEE ER HOLDING NURSE. ALL QUESTIONS ANSWERED, PT MOVED TO ER 12
--- NOTE | 2024-12-16 01:44 | ERN ---
General Chief Complaint: Palpitations Stated Complaint: C/O AFIB Time Seen by MD: 00:10 History of Present Illness Initial Comments Mr Burleson is a 54 year old male who comes in today with a chief complaint of palpitations. Patient reports that he has not ongoing history of paroxysmal AFib. Patient reports that he has been in and out of AFib 4 times in the last 24 hours. Patient is a patient of Dr. Mcgee. Patient has been in echocardiogram further evaluation numbers AFib. Patient is currently in sinus rhythm in the 70s. Patient denies any current symptomatology. Allergies: Coded Allergies: levofloxacin (Unverified Allergy, Severe, SHORTNESS OF BREATH, 12/04/17) AND SEVERE CHEST PAIN Home Meds Active Scripts Flecainide Acetate (Flecainide Acetate) 50 Mg Tablet, 50 MG PO BID for 30 Days, #60 TAB 1 Refill Prov:ADILENE DUTTON 06/02/20 Aspirin (Aspirin EC) 325 Mg Tablet.dr, 325 MG PO DAILY for 30 Days, #30 TAB 1 Refill Prov:ADILENE DUTTON 06/02/20 Metoprolol Succinate (Metoprolol Succinate) 50 Mg Tab.er.24h, 75 MG PO DAILY for 30 Days, #45 TAB 1 Refill Prov:ADILENE DUTTON 06/02/20 Past Medical History Past Medical History: Diabetes-Type II Past Surgical History: Cholecystectomy ROS Dictation Constitutional: Negative for fever,chills, and weight loss Eyes: Negative for injury, pain,redness, and discharge ENT: Negative for injury,pain or swelling Cardiovascular: Negative for chest pain, palpitations, and edema Respiratory: Negative for shortness of breath, cough, and wheezing, Abdomen/GI: Negative for abdominal pain, nausea, vomiting, diarrhea, and constipation Back: Negative for injury and pain : Negative for injury, bleeding and discharge MS/Extremity: Negative for injury and deformity Skin: Negative for rash, and discoloration Neuro: Dizziness Psych: Negative for suicide ideation, homicidal ideation, and hallucinations Physical Exam Physical Exam Dictation General: awake, alert, NAD Head/Face: Normocephalic, atraumatic Eyes: PERRL, EOMI, vision at baseline ENT: oral cavity clear, TMs clear, no signs of infection Neck: Trachea midline, supple, no nuchal rigidity Cardiovascular: RRR, normal S1/S2, No MRGs, no JVD Respiratory: CTAB, no respiratory distress, No rales or wheezes Abdomen: Soft, non-tender, non-distended, normal bowel sounds, no guarding or rebound. Skin: Warm, dry, normal turgor, no rash MS/Extremity: Pulses equal, no cyanosis, neurovascular intact, FROM Neuro: COAx4, GCS 15, strength 5/5, CN 2-12 intact, normal cerebellar exam, normal gait, Psych: Normal behavior, mood, and affect normal Results Laboratory and Microbiology Lab and Micro Result Laboratory Tests Test 12/16/24 00:15 White Blood Count 10.3 K/uL (4.8-10.8) Red Blood Count 5.79 MIL/uL (4.50-6.20) Hemoglobin 16.4 g/dL (14.0-18.0) Hematocrit 48.8 % (42-54) Mean Corpuscular Volume 84.3 fL (79-99) Mean Corpuscular Hemoglobin 28.3 pg (27.0-33.0) Mean Corpuscular Hemoglobin Concent 33.6 g/dL (32.0-36.0) Red Cell Distribution Width 13.6 % (11.0-15.5) Platelet Count 310 K/uL (130-400) Mean Platelet Volume 9.9 fL (7.5-10.5) Immature Granulocyte % (Auto) 0.2 % (0-1) Neutrophils (%) (Auto) 58.5 % (40.0-77.0) Lymphocytes (%) (Auto) 30.9 % (21.0-51.0) Monocytes (%) (Auto) 7.6 % (3.0-13.0) Eosinophils (%) (Auto) 2.2 % (0.0-8.0) Basophils (%) (Auto) 0.6 % (0.0-5.0) Neutrophils # (Auto) 6.0 K/uL (1.8-7.7) Lymphocytes # (Auto) 3.2 K/uL (1.0-4.8) Monocytes # (Auto) 0.8 K/uL (0.1-1.0) Eosinophils # (Auto) 0.23 K/uL (0.00-0.70) Basophils # (Auto) 0.06 K/uL (0.00-0.20) Absolute Immature Granulocyte (auto 0.02 K/uL (0-1) Nucleated Red Blood Cells 0.0 % (0.0-0.19) Sodium Level 141 mmol/L (136-145) Potassium Level 2.8 mmol/L (3.5-5.1) *L Chloride Level 103 mmol/L (101-111) Carbon Dioxide Level 30 mmol/L (21-32) Blood Urea Nitrogen 13 mg/dL (7-18) Creatinine 1.1 mg/dL (0.5-1.3) Glomerular Filtration Rate Calc 80 mL/min (>90) Random Glucose 119 mg/dL (70-105) H Total Calcium 8.7 mg/dL (8.5-10.1) Total Creatine Kinase 133 U/L (21-232) Troponin I High Sensitivity 12 ng/L (4-75) Triglycerides Level 130 mg/dL (30-200) Cholesterol Level 154 mg/dL (<200) LDL Cholesterol 92 mg/dL (0-99) HDL Cholesterol 54 mg/dL (29-71) MDM Patient was found to have a potassium of 2.8. Patient will be admitted for further evaluation and care by Cardiology. MDM: Differential diagnosis: Rationale: Tests considered and ordered secondary to shared decision making include: labs, ECG and radiology Previous outside records reviewed: Old ER visits. Risk of complication and/or morbidity or mortality of patient management: None Medications-Per medication reconciliation Need for hospitalization: Patient does meet criteria for hospitalization. Need for emergency major/minor surgery: No There are no social concerns with this patient. Prescription drug management Prescriptions will include symptomatic care Patient's prior external medical records from other ER visits were reviewed by me as indicated. Prior testing and results from previous visits were reviewed. Prior tests were taken into account with medical decision making and resource utilization, independent historian/historians were used to obtain complete medical history. I independently interpreted the test that were performed, results were reviewed by me and considered findings on radiology if ordered. Medical management and examination interpretation discussions were had by me with other qualified healthcare professionals as indicated for the patient's care. ED Course Orders Procedure Category Date Status Time Cbc With Differential LAB 12/16/24 Complete 00:29 Lipid Panel LAB 12/16/24 Complete 00:29 Chest 1vw RAD 12/16/24 Resulted 00:29 12 Lead Ekg Tracing- EKG 12/16/24 Logged Technical 00:29 Aspirin 81mg Chew Tab PHA 12/16/24 Complete (Aspirin 81mg Chew 00:30 Creatine Kinase, Total LAB 12/16/24 Complete 00:29 Troponin I High LAB 12/16/24 Complete Sensitivity 00:29 Basic Metabolic Panel LAB 12/16/24 Complete 00:29 Potassium Chl 10% PHA 12/16/24 Complete Elixir 20meq (Kcl 10% 01:30 Potassium Chloride PHA 12/16/24 Complete 20meq/10ml (Kcl 20meq 01:30 Potassium Chloride PHA 12/16/24 Complete 10meq/100ml ([place] 01:30 Admit Orders ADM 12/16/24 Transmitted 01:20 Initiate Hypoglycemia BEULAH 12/16/24 In Process Protocol 01:22 Dextrose 50%-Water PHA 12/16/24 In Process (D50w) 01:30 Glucagon 1mg Kit PHA 12/16/24 In Process (Glucagon 1mg Kit) 01:30 Initiate Po BEULAH 12/16/24 In Process Hypokalemia Protoc 01:22 Potassium Chloride PHA 12/16/24 In Process 20meq/100ml ([place] 01:30 Potassium Chl 10% PHA 12/16/24 In Process Elixir 20meq (Kcl 10% 01:30 Potassium Chloride PHA 12/16/24 In Process 20meq Er (K-Dur/Klor- 01:30 Notify Physician If CPOE 12/16/24 Transmitted There Is 01:22 Notify Md On The Next CPOE 12/16/24 Transmitted 01:22 Notify Md On The CPOE 12/16/24 Transmitted Next(Cont.) 01:22 Magnesium 2gm Premix PHA 12/16/24 In Process 50ml (Magnesium 2gm 01:30 Magnesium LAB 12/16/24 In Process 01:23 Current Medications Medications (Trade) Dose Ordered Sig/Toni Route PRN Reason Start Time Stop Time Status Last Admin Dose Admin Aspirin (Aspirin 81mg Chew Tab) 81 mg ONCE ONCE PO 12/16/24 00:30 12/16/24 00:35 DC 12/16/24 00:45 Dextrose (D50w) 50 ml AD PRN IV HYPOGLYCEMIA PROTOCOL 12/16/24 01:30 01/15/25 01:29 Glucagon (Glucagon 1mg Kit) 1 mg AD PRN IM HYPOGLYCEMIA PROTOCOL 12/16/24 01:30 01/15/25 01:29 Magnesium Sulfate 50 ml @ 0 mls/hr PROTOCOL PRN IV MAGNESIUM PROTOCOL 12/16/24 01:30 01/15/25 01:29 Potassium Chloride 10 meq/ Sodium Chloride 50 ml @ 50 mls/hr PROTOCOL IV 12/16/24 01:30 12/16/24 01:18 DC Potassium Chloride 100 ml @ 100 mls/hr AD PRN IV POTASSIUM PROTOCOL 12/16/24 01:30 12/16/24 01:26 DC 12/16/24 01:21 Potassium Chloride 100 ml @ 100 mls/hr AD PRN IV POTASSIUM PROTOCOL 12/16/24 01:30 01/15/25 01:29 Potassium Chloride (K-Dur/Klor-Con 20meq) 20 meq AD PRN PO POTASSIUM PROTOCOL 12/16/24 01:30 01/15/25 01:29 Potassium Chloride (KCl 10% Elixir 20meq/15ml) 20 meq AD PRN PO POTASSIUM PROTOCOL 12/16/24 01:30 01/15/25 01:29 Potassium Chloride (KCl 10% Elixir 20meq/15ml) 40 meq ONCE ONCE PO 12/16/24 01:30 12/16/24 01:31 DC 12/16/24 01:20 Vital Signs Date Time Temp Pulse Resp B/P (MAP) Pulse Ox O2 Delivery O2 Flow Rate FiO2 12/16/24 00:18 98.2 86 17 145/79 97 Room Air* 0 21 12/16/24 00:08 97.9 85 20 206/86 97 Room Air DX & DISP Disposition: Discharge Departure Impression: Primary Impression: Atrial fibrillation with rapid ventricular response Additional Impression: Hypokalemia Condition: Stable Referrals: EDIS MARSH MD (PCP) DEVENDRA BELTRAN MD Dec 16, 2024 01:44
--- NOTE | 2024-12-16 02:40 | HP ---
[facility] HISTORY AND PHYSICAL Date of Service: Dec 16, 2024 Time of Service: 02:39 Supervising/attending physician: Dr. Corey Lucio and Dr. Echavarria HISTORY OF PRESENT ILLNESS: Mr Burleson is a 54 year old male with a history of paroxysmal AFib and diabetes mellitus type who presented to [facility] ED for evaluation of palpitations. Patient reported that he has been in and out of AFib 4 times in the last 24 hours. Patient is a patient of Dr. Mcgee. Patient reports he is pending an echocardiogram in the coming month. On arrival to ED the patient was in sinus rhythm in the 70s. The patient denied chest pain, shortness of breath, any other pain, problem or concern. In ED the patient was found with a potassium of 2.8. Chest x-ray was negative. EKG sinus rhythm, 77 bpm. ED provider requested patient be admitted to the hospital with the diagnosis of a hypokalemia, atrial fibrillation with rapid ventricular response. I assessed the patient in ER 12. The patient's breathing was even, unlabored, in no distress. Patient denied chest pain, shortness of breath, any other pain, problem or concern. I informed him and significant other of labs, diagnostics, and plan of care. He verbalized understanding and is in agreement with the plan. Plan and assessment are listed below. REVIEW OF SYSTEMS 12-point ROS reviewed with the patient. All pertinent positives mentioned above. Otherwise negative, noncontributory, non-pertinent. PAST MEDICAL HISTORY: As mentioned above PAST SURGICAL HISTORY: Cholecystectomy PAST SOCIAL HISTORY: Denied alcohol, tobacco, illicit drug use FAMILY HISTORY: Noncontributory Coded Allergies: levofloxacin (Unverified Allergy, Severe, SHORTNESS OF BREATH, 12/04/17) AND SEVERE CHEST PAIN PHYSICAL EXAM GENERAL APPEARANCE: The patient is awake, alert, and oriented, in no acute cardiopulmonary distress. NEUROLOGICAL: Cranial nerves II-XII grossly intact. Motor is 5/5 in bilateral upper and lower extremities proximal to distal. No sensory deficits. HEENT: Face is symmetric. Pupils are equal and reactive. Extraocular movements are intact. NECK: Supple. No JVD. No thyromegaly. No submental, submandibular, pre- /postauricular, occipital or supraclavicular lymphadenopathy. CHEST: Normal chest expansion. No Telemetry. LUNGS: Absence of any rales, rhonchi or any wheezing. CARDIOVASCULAR: Regular. S1 and S2 normal. No appreciable rubs, murmurs or gallops. ABDOMEN: Soft, nontender, and nondistended. There is no rebound, voluntary guarding, or rigidity. : Deferred. No Wang. EXTREMITIES: Non-edematous and not cyanotic. No clubbing. Good capillary refill. SKIN: No skin breakdown. Vital Sign (Last 24 Hours) 12/16/24 00:18 Temp 98.2 Pulse 86 Resp 17 B/P (MAP) 145/79 Pulse Ox 97 O2 Delivery Room Air* O2 Flow Rate 0 FiO2 21 LABS: Laboratory: Test 12/16/24 00:15 Range/Units White Blood Count 10.3 4.8-10.8 K/uL Red Blood Count 5.79 4.50-6.20 MIL/uL Hemoglobin 16.4 14.0-18.0 g/dL Hematocrit 48.8 42-54 % Mean Corpuscular Volume 84.3 79-99 fL Mean Corpuscular Hemoglobin 28.3 27.0-33.0 pg Mean Corpuscular Hemoglobin Concent 33.6 32.0-36.0 g/dL Red Cell Distribution Width 13.6 11.0-15.5 % Platelet Count 310 130-400 K/uL Mean Platelet Volume 9.9 7.5-10.5 fL Immature Granulocyte % (Auto) 0.2 0-1 % Neutrophils (%) (Auto) 58.5 40.0-77.0 % Lymphocytes (%) (Auto) 30.9 21.0-51.0 % Monocytes (%) (Auto) 7.6 3.0-13.0 % Eosinophils (%) (Auto) 2.2 0.0-8.0 % Basophils (%) (Auto) 0.6 0.0-5.0 % Neutrophils # (Auto) 6.0 1.8-7.7 K/uL Lymphocytes # (Auto) 3.2 1.0-4.8 K/uL Monocytes # (Auto) 0.8 0.1-1.0 K/uL Eosinophils # (Auto) 0.23 0.00-0.70 K/uL Basophils # (Auto) 0.06 0.00-0.20 K/uL Absolute Immature Granulocyte (auto 0.02 0-1 K/uL Nucleated Red Blood Cells 0.0 0.0-0.19 % Sodium Level 141 136-145 mmol/L Potassium Level 2.8 *L 3.5-5.1 mmol/L Chloride Level 103 101-111 mmol/L Carbon Dioxide Level 30 21-32 mmol/L Blood Urea Nitrogen 13 7-18 mg/dL Creatinine 1.1 0.5-1.3 mg/dL Glomerular Filtration Rate Calc 80 >90 mL/min Random Glucose 119 H 70-105 mg/dL Total Calcium 8.7 8.5-10.1 mg/dL Magnesium Level 2.00 1.80-2.40 mg/dL Total Creatine Kinase 133 21-232 U/L Troponin I High Sensitivity 12 4-75 ng/L Triglycerides Level 130 30-200 mg/dL Cholesterol Level 154 <200 mg/dL LDL Cholesterol 92 0-99 mg/dL HDL Cholesterol 54 29-71 mg/dL Current Medications Medications (Trade) Dose Ordered Sig/Toni Route PRN Reason Start Time Stop Time Status Last Admin Dose Admin Dextrose (D50w) 50 ml AD PRN IV HYPOGLYCEMIA PROTOCOL 12/16/24 01:30 01/15/25 01:29 Glucagon (Glucagon 1mg Kit) 1 mg AD PRN IM HYPOGLYCEMIA PROTOCOL 12/16/24 01:30 01/15/25 01:29 Magnesium Sulfate 50 ml @ 0 mls/hr PROTOCOL PRN IV MAGNESIUM PROTOCOL 12/16/24 01:30 01/15/25 01:29 Potassium Chloride 10 meq/ Sodium Chloride 50 ml @ 50 mls/hr PROTOCOL IV 12/16/24 01:30 12/16/24 01:18 DC Potassium Chloride 100 ml @ 100 mls/hr AD PRN IV POTASSIUM PROTOCOL 12/16/24 01:30 12/16/24 01:26 DC 12/16/24 01:21 100 MLS/HR Potassium Chloride 100 ml @ 100 mls/hr AD PRN IV POTASSIUM PROTOCOL 12/16/24 01:30 01/15/25 01:29 Potassium Chloride (K-Dur/Klor-Con 20meq) 20 meq AD PRN PO POTASSIUM PROTOCOL 12/16/24 01:30 01/15/25 01:29 Potassium Chloride (KCl 10% Elixir 20meq/15ml) 20 meq AD PRN PO POTASSIUM PROTOCOL 12/16/24 01:30 01/15/25 01:29 DIAGNOSTICS / RADIOLOGY: [ ] ASSESSMENT: Atrial fibrillation with RVR, POA, currently sinus LVEF 50-55%, low normal LV systolic function, grade 1 diastolic dysfunction, per echo in 06/01/2020 Palpitations Severe hypokalemia, POA Hypertension Diabetes mellitus with hyperglycemia Acute on chronic kidney disease, GFR 80 (GFR 81 on 09/14/24) Obesity, BMI 36.1 History of gout PLAN: -Admit to medical floor with continuous telemetry monitoring. -Troponin levels and EKG series. -Cardiology consult in the am. -2D echo in a.m. with heart clinic to read. -PRN medications for pain management, fever, N/V, constipation, hypertension. -Oxygen supplement as needed to maintain oxygen levels equal to or greater than 92% -Nitroglycerin sublingual as needed chest pain -Aspirin 81 mg p.o. daily. -Atorvastatin 40 mg PO daily. -Strict I&O. -Blood pressure checks every 4 hours and as needed. -Reconcile home medications once available. -Glucometer checks before meals and at bedtime with insulin regular sliding scale. -Blood pressure checks every 4 hours and as needed. - Monitor renal and liver function. -Monitor electrolytes and treat accordingly PRN -AM labs. -GI and DVT prophylaxis -Further plan/orders per hospitalization course. ADVANCED CARE PLANNING 1. Which of the following were discussed? Hospice Care - No Therapeutic options - Yes Advance Directives - Yes Other discussions - 2. Discussed with who? The patient 3. Voluntary nature of this service was explained to the patient? Yes 4. Amount of time spent - __ Over 35 minutes 5. Reviewed by Physician? (if this service was performed by WILVER) Yes ATTESTATION BY PHYSICIAN I have seen and examined the patient. I reviewed the documentation, medical decision making, and treatment plan as noted by the mid-level provider above. I agree with the findings and plan of care. RUBEN SIEGEL WOOD PILE DRIVER OPERATOR Dec 16, 2024 02:40
[2024-12-16] MEDS ORDERED: LACTULOSE 20 GM/30 ML UDCUP PO PRN (04:30)
[2024-12-16 04:32] LABS: ADD UA MICROSCOPIC NO; APPEARANCE,URINE CLEAR (CLEAR); GLUCOSE, URINE (UA) NEGATIVE (NEGATIVE); LEUKOCYTE ESTERASE ,URINE NEGATIVE Leu/uL (NEGATIVE); NITRATE,URINE NEGATIVE (NEGATIVE); OCCULT BLOOD,URINE NEGATIVE (NEGATIVE)
[2024-12-16 05:12] LABS: AMPHET/METH SCREEN,URINE NEGATIVE (NEGATIVE); BARBITURATE SCREEN, URINE NEGATIVE (NEGATIVE); CANNABINOID SCREEN,URINE NEGATIVE (NEGATIVE); COCAINE SCREEN,URINE NEGATIVE (NEGATIVE)
[2024-12-16 05:12] LABS: RAPID GROUP A STREP negative (NEGATIVE)
[2024-12-16 05:16] LABS: SARS-CoV-2, RNA, NAAT NEGATIVE SARS CoV-2 (NEGATIVE)
[2024-12-16 05:22] LABS: INFLUENZA TYPE A Negative For Type A (NEGATIVE); INFLUENZA TYPE B Negative For Type B (NEGATIVE)
--- NOTE | 2024-12-16 06:37 | EKG ---
[facility] Test Date: 2024-12-16 Test Time: 00:09:12 Pat Name: ROSS WHITE Department: EDHIP Room: 229 Gender: M Mill Set Up: 1376 : 1970 Requested By: DEVENDRA BELTRAN Order Number: [id number] Reading MD: Tony Vanessa Measurements Intervals [place] Rate: 77 P: 41 DC: 207 QRS: 5 QRSD: 113 T: 31 QT: 387 QTc: 438 Interpretive Statements Sinus rhythm Borderline prolonged DC interval Probable left atrial enlargement Compared to ECG 06/02/2020 10:17:17 ST (T wave) deviation no longer present Electronically Signed On 12-16-2024 15:02:12 CDT by Tony Vanessa Please click the below link to view image of tracing.
[2024-12-16 07:19] LABS: CREATININE 0.9 mg/dL (0.5-1.3); GLOMERULAR FILTR. RATE CALC 102.0 mL/min (>90); GLUCOSE,RANDOM 94.0 mg/dL (70-105); SODIUM SERUM 136.0 mmol/L (136-145); UREA NITROGEN, BLOOD 12.0 mg/dL (7-18)
[2024-12-16] MEDS ORDERED: NITROGLYCERIN 0.4 MG SL TAB SL PRN (08:00)
--- NOTE | 2024-12-16 08:07 | EKG ---
[facility] Test Date: 2024-12-16 Test Time: 08:01:38 Pat Name: ROSS WHITE Department: EDHIP Room: 229 Gender: M Clerical Adjuster: 9501 : 1970 Requested By: RUBEN SIEGEL Order Number: [id number] Reading MD: Tony Vanessa Measurements Intervals [place] Rate: 57 P: 22 CT: 231 QRS: -3 QRSD: 104 T: 18 QT: 421 QTc: 411 Interpretive Statements Sinus rhythm Prolonged CT interval Compared to ECG 12/16/2024 00:09:12 No significant changes Electronically Signed On 12-16-2024 15:03:10 CDT by Tony Vanessa Please click the below link to view image of tracing.
--- NOTE | 2024-12-16 08:10 | NUR ---
CARDIOLOGY PAGED REGARDING CONSULT
--- NOTE | 2024-12-16 09:16 | CONS ---
[facility] Cardiology Consultation Note Cardiology consult dictated for Sae Vanessa MD Date of service 12/16/2024 Primary stock controller: Dr. Mcgee Chief complaint: Palpitations Reason for consult: Atrial fibrillation History of present illness: This is a 54-year-old male patient of Dr. Mcgee with history of paroxysmal atrial fibrillation due to the emergency department last night for evaluation of palpitations. Currently he is taking flecainide 50 mg b.i.d. and metoprolol succinate 75 mg daily along with aspirin 325 mg daily. Flecainide was decreased at the beginning of the year due to weight loss of approximately 64 lb. Patient became hypotensive and bradycardic. He was evaluated at the heart Clinic in September and was pending 2D echocardiogram. He did have a CTA two weeks ago in the [place] office. He normally only has one episode of atrial fibrillation that is short-lived maybe once a month. Was evaluated by Dr Levin one year ago and was told not a candidate for ablation but at the time episodes were occurring less frequently. He became concerned when yesterday atrial fibrillation persisted on and off even after he took his medication. In the emergency department 12 lead EKG demonstrates sinus bradycardia heart rate of 85 beats per minute with a blood pressure of 206/86 he was afebrile. Blood work demonstrated a potassium of 2.8 And magnesium of 2.0 troponin 12 and 22. Currently the patient is resting comfortably with at bedside denies chest pain no dizziness syncope. Review of systems: 14 point review of systems performed pertinent positives and negatives discussed in HPI. Past medical history: Positive for atrial fibrillation, hypertension, obesity with recent weight loss due to use of one 0, GERD, family history of premature coronary artery disease, normal Lexiscan 2019 echocardiogram June 01, 2020 ejection fraction 50-55%, grade 1 diastolic dysfunction normal LV segmental wall motion with trace to mild MR no pericardial effusion. Past surgical history: Positive for cholecystectomy Family history: Father suffered 1st [facility] in his 40s and at 51 due to cardiac causes Allergies: Patient is allergic to Levaquin Social history: Patient denies tobacco alcohol or illicit drug use, lives with Physical exam: Blood pressure 110/70 heart rate of 56 beats per minute and regular normal S1-S2 no rubs gallops murmurs noted. Neck is supple no jugular vein distention no carotid bruits. Bilateral breath sounds are clear to auscultation. Lower extremities no edema no cyanosis. Patient is alert awake and oriented. All others within normal limits. Assessment: Palpitations History of paroxysmal atrial fibrillation on no anticoagulation Hypokalemia Recent CCTA as op pending results Diabetes mellitus type GERD Hypertension Echocardiogram June 01, 2020 left ventricular ejection fraction 50-55%, grade 1 diastolic dysfunction, trace to mild MR Plan: At this point we have a 54-year-old male presented for evaluation of episodes of atrial fibrillation throughout several hours. He does have a history of atrial fibrillation but usually episodes do not last as long. He presented for further assessment and potassium in the emergency department was 2.8 And was supplement ed this morning potassium is 3.8. Telemetry sinus bradycardia heart rate in the 50s. He had a 2D echocardiogram performed this morning pending results. The patient did have a CCTA in the [place] office several weeks ago with no results. I will request records from [facility]. We can resume home medications. Addendum: The patient's flecainide in the past has been reduced not because of any side effects but that he was bradycardic. In view of this we will reduce metoprolol succinate down to 12-1/2 twice a day and increase flecainide up to 100 mg b.i.d. and observe his QT interval and heart rate. Did have a 2D echocardiogram this morning I will review this. We will request a copy of his CCTA from the [facility] office. If he does have documented significant coronary artery disease we may need to change his flecainide to an alternative agent. ATTESTATION BY PHYSICIAN I have seen and examined the patient. I reviewed the documentation, medical decision making, and treatment plan as noted by the mid-level provider above. I agree with the findings and plan of care. SAE VANESSA MD, [facility] Dec 16, 2024 09:16 SAE VANESSA MD Dec 16, 2024 13:59
--- NOTE | 2024-12-16 09:25 | NUR ---
DUPLICATE ORDER FOR LOPRESSOR PO. NOTE HEART RATE IN 50S.
--- NOTE | 2024-12-16 10:22 | NUR ---
DCP: HOME Pt currently lives with fam Burleson [phone]. Pt does not report insecurities with food, jail, and/or utilities. Pt does not have DME, home health, or provider services. Pt is able to complete ADLs independently. PCP is Dr. Marsh and uses [facility] for any RX needs. At [place] pt will want to go home and family can assist with transportation. Addendum: 12/16/24 at 1024 by MUMTAZ CASPER SS Amended: Links added.
[2024-12-16] MEDS: ASPIRIN 81MG CHEW TAB PO SCH (10:36)
--- NOTE | 2024-12-16 10:40 | NUR ---
LOPRESSOR HELD FOR HEART HEART RATE <60
[2024-12-16] MEDS ORDERED: COLC0.6C3 PO (11:14)
[2024-12-16] MEDS ORDERED: METO-408 PO (11:14)
[2024-12-16] MEDS ORDERED: TIRZ10PE SQ (11:14)
[2024-12-16] MEDS ORDERED: ASPI-1005 PO (11:14)
[2024-12-16] MEDS: FLECAINIDE ACETATE 100 MG TABLET PO ONE (14:45)
--- NOTE | 2024-12-16 14:45 | HMCSR ---
APPROVED REPORT EXAM: Two-dimensional and M-mode echocardiogram with Doppler and color Doppler. INDICATION ICD: R00.2 Palpitations 2D Dimensions RVDd4.8 cmLVEF(%)44.7 (>50%)LVED Vol(simp.)200.0 mL IVSd0.9 (0.7-1.1cm)FS(%)22 %LVES Vol(simp.)84.0 mL LVDd5.6 (3.8-5.6cm)LA (2D)4.7 (1.6-4.0cm)LVEF(%, simp.)58 % PWd1.3 (0.7-1.1cm)Ao Root(2D)4.0 (2.0-3.7cm)LA ESV INDEX (BP)29.10 mL/m2 IVSs1.2 cmLVOT diam2.6 (1.8-2.4cm) LVDs4.3 (2.5-4.0cm)IVC diam1.8 cm PWs1.3 cm Deformation Strain Apical 4-18.5 % Apical 2-18.4 % Apical 3-19.8 % Global Strain-18.9 % M-Mode Dimensions EPSS0.5 cm LA (MM)4.7 (1.6-4.0cm) Ao Root(MM)3.9 (2.0-3.7cm) Aortic Valve AoV Vmax1.5 m/Manuel Peak GR8.5 mmHgLVOT Vmax1.0 m/s AoV VTI0.3 mAo Mean GR4.2 mmHgLVOT VTI0.24 m CASSI (VMAX)3.77 cm2AVA (VTI) 4.3 cm2 Mitral Valve MV E Vmax81.5 cm/sDECEL Hcpy524 ms MV A Vmax78.7 cm/sP 1/2 T53 ms E/A ratio1.0MVA (PHT)4.1 cm2 TDI E/E' Mrgpxv83.8E/E' Lateral9.6 Medial E' Peak V6.93 cm/sLateral E' Peak V8.48 cm/s Pulmonary Valve PV Vmax1.0 m/sPV VTI0.24 mPV Mean GR2.6 mmHg PV Peak GR3.7 mmHg Tricuspid Valve TR Vmax1.6 m/sRAP (EST) 3 dcDrOPPI56.1 mmHg TR Peak GR11.1 mmHg Left Ventricle The left ventricle is mildly dilated. GLS -19.0% There is normal left ventricular wall thickness. LVE F is 55-60%. 3D volume EF 57%. Indeterminate diastolic dysfunction. Right Ventricle The right ventricle is normal size. The right ventricular systolic function is normal. Atria The left atrium size is normal. The right atrium size is borderline dilated. Aortic Valve Aortic valve is trileaflet and opens well. No aortic regurgitation is present. There is no aortic alesia vular stenosis. Mitral Valve The mitral valve is normal in structure. There is no mitral valve regurgitation noted. There is no mi tral valve stenosis. Tricuspid Valve The tricuspid valve is normal in structure. There is trace of tricuspid valve regurgitation noted. Pulmonic Valve The pulmonary valve is normal in structure. There is no pulmonic valvular regurgitation. Great Vessels The aortic root is normal in size. The IVC is normal in size and collapses >50% with inspiration. Pericardium There is no pericardial effusion. Other Information Quality : Adequate Conclusion LVEF is 55-60%. 3D volume EF 57%. GLS -19.0%
[2024-12-16] MEDS: FLECAINIDE ACETATE 100 MG TABLET PO SCH (21:21)
[2024-12-17 04:06] LABS: NUCLEATED RED BLOOD CELLS 0.0 % (0.0-0.19); PLATELET COUNT (AUTO) 282.0 K/uL (130-400); RED BLOOD CELL COUNT(AUTO) 5.36 MIL/uL (4.50-6.20); RED CELL DISTRIBUTION WIDTH 13.7 % (11.0-15.5); WHITE BLOOD COUNT (AUTO) 8.7 K/uL (4.8-10.8)
[2024-12-17 04:17] VITALS: BP 96/57; PULSE 57; RESP 18; TEMP 97.7
[2024-12-17 04:26] LABS: CREATININE 1.3 mg/dL (0.5-1.3); GLOMERULAR FILTR. RATE CALC 66.0 mL/min (>90); GLUCOSE,RANDOM 91.0 mg/dL (70-105); PHOSPHORUS 3.6 mg/dL (2.5-4.9); SODIUM SERUM 142.0 mmol/L (136-145); UREA NITROGEN, BLOOD 13.0 mg/dL (7-18)
[2024-12-17] MEDS: PoTASSium chloRIDE 20MEQ ER 20 MEQ ERTAB PO PRN (06:18)
[2024-12-17 07:00] VITALS: BP 132/80; PULSE 61; RESP 20; TEMP 98.5; O2SAT 100
--- NOTE | 2024-12-17 08:23 | PN ---
[facility] Cardiology Progress Note Cardiology progress note dictated for Sae Vanessa MD Date of service 12/17/2024 Problem list: Palpitations History of paroxysmal atrial fibrillation on no anticoagulation Hypokalemia Recent CCTA as op pending results Diabetes mellitus type GERD Hypertension Echocardiogram June 01, 2020 left ventricular ejection fraction 50-55%, grade 1 diastolic dysfunction, trace to mild MR Review of blood work this morning: CBC with white blood cells of 8.7, hemoglobin of 15.2, hematocrit of 45.3 and platelets of 282. Basic metabolic panel with a sodium of142 potassium 3.3, BUN of 13 creatinine of 1.3, GFR of 66 and a magnesium of 2.0. Current medications: Flecainide 100 mg p.o. b.i.d., metoprolol succinate 12.5 mg p.o. b.i.d., colchicine 0.6 mg b.i.d., atorvastatin 40 mg at HS, aspirin 81 mg daily. Assessment/plan: 54-year-old male with history of atrial fibrillation presented with complaints of palpitations. Potassium on admission was 2.8 troponin 12and 22 with a magnesium of 2.0. Magnesium has been supplemented. Medications from home included metoprolol [id number] mg daily and flecainide 50 mg p.o. b.i.d.. We decreased metoprolol to 12.5 b.i.d. and increase flecainide to 100 mg p.o. b.i.d.. As part of his evaluation he had a 2D echocardiogram demonstrated left ventricular ejection fraction 55-60% with no pericardial effusion, trace tricuspid regurgitation. This morning he has a blood pressure of 96/57 with a heart rate of 57 beats per minute and regular. He slept well without complaints this morning no events overnight. CCTA reports requested once more from [place] office. Addendum: We have received a copy of the CCTA report and there was no evidence of obstructive coronary artery disease. Since reducing his metoprolol to 12-1/2 twice a day and increasing flecainide to 100 mg twice a day he has had no arrhythmias and no recurrent bradycardia. He does complain of headaches since admission. Because of persistent right-sided headaches unrelieved with Tylenol I would recommend a CT scan of the head without contrast. If this shows no abnormalities he can be discharged home and follow up with Dr. Hitesh Mcgee and his primary physician for further evaluation and treatment. If he continues to have frequent breakthrough arrhythmias in the future he may be a candidate for AFib ablation. ATTESTATION BY PHYSICIAN I have seen and examined the patient. I reviewed the documentation, medical d ecision making, and treatment plan as noted by the mid-level provider above. I agree with the findings and plan of care. SAE VANESSA MD, [facility] Dec 17, 2024 08:23 SAE VANESSA MD Dec 17, 2024 11:49
[2024-12-17 11:00] VITALS: BP 134/81; PULSE 64; RESP 20; TEMP 98.5
[2024-12-17] MEDS ORDERED: FLEC100T3 PO (11:53)
[2024-12-17] MEDS ORDERED: METO25TA6 PO (11:53)
--- NOTE | 2024-12-17 12:34 | PN ---
[facility] PROGRESS NOTE Date of Service: Dec 17, 2024 Time of Service: 12:32 SUBJECTIVE: [ patient continues to report a heaache pending ct head. ] REVIEW OF SYSTEMS 12-point ROS reviewed with the patient. All pertinent positives mentioned above. Otherwise negative, noncontributory, non-pertinent. PHYSICAL EXAM GENERAL APPEARANCE: The patient is awake, alert, and oriented, in no acute cardiopulmonary distress. NEUROLOGICAL: Cranial nerves II-XII grossly intact. Motor is 5/5 in bilateral upper and lower extremities proximal to distal. No sensory deficits. HEENT: Face is symmetric. Pupils are equal and reactive. Extraocular movements are intact. NECK: Supple. No JVD. No thyromegaly. No submental, submandibular, pre- /postauricular, occipital or supraclavicular lymphadenopathy. CHEST: Normal chest expansion. No Telemetry. LUNGS: Absence of any rales, rhonchi or any wheezing. CARDIOVASCULAR: Regular. S1 and S2 normal. No appreciable rubs, murmurs or gallops. ABDOMEN: Soft, nontender, and nondistended. There is no rebound, voluntary guarding, or rigidity. : Deferred. No Wang. EXTREMITIES: Non-edematous and not cyanotic. No clubbing. Good capillary refill. SKIN: No skin breakdown. Vital Signs (last 8hr) Date Time Temp Pulse Resp B/P (MAP) Pulse Ox O2 Delivery O2 Flow Rate FiO2 12/17/24 11:00 98.4 64 20 134/81 93 Room Air 12/17/24 07:00 98.4 61 20 132/80 95 Room Air 12/17/24 07:00 100 Room Air* 0 21 LABS: Laboratory: Test 12/17/24 11:20 12/17/24 03:42 12/16/24 06:37 12/16/24 04:54 Range/Units Whole Blood Glucose 97 70-110 MG/DL White Blood Count 8.7 4.8-10.8 K/uL Red Blood Count 5.36 4.50-6.20 MIL/uL Hemoglobin 15.2 14.0-18.0 g/dL Hematocrit 45.3 42-54 % Mean Corpuscular Volume 84.5 79-99 fL Mean Corpuscular Hemoglobin 28.4 27.0-33.0 pg Mean Corpuscular Hemoglobin Concent 33.6 32.0-36.0 g/dL Red Cell Distribution Width 13.7 11.0-15.5 % Platelet Count 282 130-400 K/uL Mean Platelet Volume 9.7 7.5-10.5 fL Nucleated Red Blood Cells 0.0 0.0-0.19 % Sodium Level 142 136-145 mmol/L Potassium Level 3.3 L 3.5-5.1 mmol/L Chloride Level 105 101-111 mmol/L Carbon Dioxide Level 32 21-32 mmol/L Blood Urea Nitrogen 13 7-18 mg/dL Creatinine 1.3 0.5-1.3 mg/dL Glomerular Filtration Rate Calc 66 >90 mL/min Random Glucose 91 70-105 mg/dL Total Calcium 8.4 L 8.5-10.1 mg/dL Phosphorus Level 3.6 2.5-4.9 mg/dL Magnesium Level 2.00 1.80-2.40 mg/dL Troponin I High Sensitivity 12 4-75 ng/L B-Type Natriuretic Peptide 22 0-100 pg/mL Thyroid Stimulating Hormone (TSH) 2.99 # 0.36-3.74 uIU/mL Influenza Type A Antigen Negative For Type A NEGATIVE Influenza Type B Antigen Negative For Type B NEGATIVE SARS-CoV-2, RNA, NAAT NEGATIVE SARS CoV-2 NEGATIVE Group A Streptococcus Rapid negative NEGATIVE Test 12/16/24 03:30 12/16/24 00:15 Range/Units Urine Color LIGHT-YELLOW YELLOW Urine Appearance CLEAR CLEAR Urine pH 5.0 5.0-8.0 Urine Specific [place] 1.010 1.001-1.031 Urine Protein NEGATIVE NEGATIVE mg/dL Urine Glucose (UA) NEGATIVE NEGATIVE mg/dL Urine Ketones NEGATIVE NEGATIVE mg/dL Urine Occult Blood NEGATIVE NEGATIVE Urine Nitrate NEGATIVE NEGATIVE Urine Bilirubin NEGATIVE NEGATIVE mg/dL Urine Urobilinogen 0.2 0.2-1.0 mg/dL Urine Leukocyte Esterase NEGATIVE NEGATIVE Juli/uL Urine Opiates Screen NEGATIVE NEGATIVE Urine Barbiturates Screen NEGATIVE NEGATIVE Urine Phencyclidine Screen NEGATIVE NEGATIVE Urine Amphetamines Screen NEGATIVE NEGATIVE Urine Benzodiazepines Screen NEGATIVE NEGATIVE Urine Cocaine Screen NEGATIVE NEGATIVE Urine Marijuana (THC) Screen NEGATIVE NEGATIVE Immature Granulocyte % (Auto) 0.2 0-1 % Neutrophils (%) (Auto) 58.5 40.0-77.0 % Lymphocytes (%) (Auto) 30.9 21.0-51.0 % Monocytes (%) (Auto) 7.6 3.0-13.0 % Eosinophils (%) (Auto) 2.2 0.0-8.0 % Basophils (%) (Auto) 0.6 0.0-5.0 % Neutrophils # (Auto) 6.0 1.8-7.7 K/uL Lymphocytes # (Auto) 3.2 1.0-4.8 K/uL Monocytes # (Auto) 0.8 0.1-1.0 K/uL Eosinophils # (Auto) 0.23 0.00-0.70 K/uL Basophils # (Auto) 0.06 0.00-0.20 K/uL Absolute Immature Granulocyte (auto 0.02 0-1 K/uL Total Creatine Kinase 133 21-232 U/L Triglycerides Level 130 30-200 mg/dL Cholesterol Level 154 <200 mg/dL LDL Cholesterol 92 0-99 mg/dL HDL Cholesterol 54 29-71 mg/dL Current Medications Medications (Trade) Dose Ordered Sig/Toni Route PRN Reason Start Time Stop Time Status Last Admin Dose Admin Acetaminophen (TYLenol 325MG TAB) 650 mg Q6H PRN PO FEVER/MILD PAIN LEVEL 1-3 12/16/24 04:30 01/15/25 04:29 Acetaminophen (TYLenol 650MG SUPPOSITORY) 650 mg Q6H PRN RC FEVER / MILD PAIN 1-3 IF NPO 12/16/24 04:30 01/15/25 04:29 Aspirin (Aspirin 81mg Chew Tab) 81 mg DAILY PO 12/16/24 09:00 01/15/25 08:59 12/17/24 09:14 81 MG Atorvastatin Calcium (LIPItor 40MG) 40 mg HS PO 12/16/24 21:00 01/15/25 20:59 12/16/24 21:21 40 MG Colchicine (COLCHicine 0.6mg TAB) 0.6 mg BID PO 12/16/24 21:00 01/15/25 20:59 12/17/24 09:14 0.6 MG Dextrose (D50w) 50 ml AD PRN IV HYPOGLYCEMIA PROTOCOL 12/16/24 01:30 01/15/25 01:29 Docusate Sodium (COLace 100MG CAP) 100 mg BID PRN PO c 12/16/24 04:30 01/15/25 04:29 Flecainide Acetate (Tambocor) 100 mg BID PO 12/16/24 21:00 01/15/25 20:59 12/17/24 09:14 100 MG Glucagon (Glucagon 1mg Kit) 1 mg AD PRN IM HYPOGLYCEMIA PROTOCOL 12/16/24 01:30 01/15/25 01:29 Insulin Human Regular (humuLIN R 100 UNIT/ML 3ML) INSULIN SLIDING SCAL... ACHS SQ 12/16/24 07:30 01/15/25 07:29 Labetalol HCl (TRANdate 20MG SYG) 10 mg Q2H PRN IV SBP GREATER THAN 160 12/16/24 04:30 01/15/25 04:29 Lactulose (Constulose 20gm/ 30ml Udcup) 20 gm Q6H PRN PO CONSTIPATION 12/16/24 04:30 01/15/25 04:29 Magnesium Sulfate 50 ml @ 0 mls/hr PROTOCOL PRN IV MAGNESIUM PROTOCOL 12/16/24 01:30 01/15/25 01:29 Metoprolol Succinate (TopROL XL) 12.5 mg BID PO 12/16/24 21:00 01/15/25 20:59 12/17/24 09:13 12.5 MG Metoprolol Succinate (TopROL XL) 25 mg DAILY PO 12/16/24 10:00 12/16/24 14:02 DC Metoprolol Succinate (TopROL XL) 50 mg DAILY PO 12/16/24 10:00 12/16/24 14:02 DC Nitroglycerin (Nitrostat) 0.4 mg AD PRN SL CHEST PAIN 12/16/24 08:00 01/15/25 07:59 Ondansetron HCl (zoFRAN 4MG INJ) 4 mg Q6H PRN IVP NAUSEA/VOMITING 12/16/24 04:30 01/15/25 04:29 Potassium Chloride 10 meq/ Sodium Chloride 50 ml @ 50 mls/hr PROTOCOL IV 12/16/24 01:30 12/16/24 01:18 DC Potassium Chloride 100 ml @ 100 mls/hr AD PRN IV POTASSIUM PROTOCOL 12/16/24 01:30 12/16/24 01:26 DC 12/16/24 01:21 100 MLS/HR Potassium Chloride 100 ml @ 100 mls/hr AD PRN IV POTASSIUM PROTOCOL 12/16/24 01:30 01/15/25 01:29 Potassium Chloride (K-Dur/Klor-Con 20meq) 20 meq AD PRN PO POTASSIUM PROTOCOL 12/16/24 01:30 01/15/25 01:29 12/17/24 09:14 20 MEQ Potassium Chloride (KCl 10% Elixir 20meq/15ml) 20 meq AD PRN PO POTASSIUM PROTOCOL 12/16/24 01:30 01/15/25 01:29 Temazepam (restORIL 15 MG CAP) 15 mg HS PRN PO INSOMNIA/SLEEP 12/16/24 04:30 01/15/25 04:29 DIAGNOSTICS / RADIOLOGY: [ ] ASSESSMENT: Atrial fibrillation with RVR, POA, currently sinus LVEF 50-55%, low normal LV systolic function, grade 1 diastolic dysfunction, per echo in 06/01/2020 Palpitations Severe hypokalemia, POA Hypertension Diabetes mellitus with hyperglycemia Acute on chronic kidney disease, GFR 80 (GFR 81 on 09/14/24) Obesity, BMI 36.1 History of gout PLAN: -Admit to medical floor with continuous telemetry monitoring. -Follow up CT head -Follow up with Cardiology consult in the am. -Continue metoprolol 12.5mg BID -Continue flecainide -PRN medications for pain management, fever, N/V, constipation, hypertension. -Oxygen supplement as needed to maintain oxygen levels equal to or greater than 92% -Nitroglycerin sublingual as needed chest pain -Aspirin 81 mg p.o. daily. -Atorvastatin 40 mg PO daily. -Strict I&O. -Blood pressure checks every 4 hours and as needed. -Reconcile home medications once available. -Glucometer checks before meals and at bedtime with insulin regular sliding scale. -Blood pressure checks every 4 hours and as needed. - Monitor renal and liver function. -Monitor electrolytes and treat accordingly PRN -AM labs. -GI and DVT prophylaxis -Further plan/orders per hospitalization course. JENNIFER CROOK IV, MD Dec 17, 2024 12:34
[2024-12-17 16:00] VITALS: BP 139/79; PULSE 63; RESP 20; TEMP 98.4
--- NOTE | 2024-12-17 16:34 | HMCIMG ---
EXAM: CT Head Without Intravenous Contrast. CLINICAL HISTORY: 54-year-old male with right-sided headache. TECHNIQUE: Axial computed tomography images of the head/brain without intravenous contrast. Dose reduction technique was used including one or more of the following: automated exposure control, adjustment of mA and kV according to patient size, and/or iterative reconstruction. CONTRAST: None. COMPARISON: MR Brain 07/26/2018. FINDINGS: BRAIN: No acute intraparenchymal hemorrhage. No mass lesion. No CT evidence for acute territorial infarct. No midline shift or extra-axial collection. VENTRICLES: No hydrocephalus. ORBITS: The orbits are unremarkable. SINUSES AND MASTOIDS: Moderate-sized left maxillary sinus retention cyst seen, similar to prior MR Brain 07/26/2018. SOFT TISSUES: No significant facial or scalp soft tissue swelling evident. No radiopaque foreign body is seen. BONES: No acute skull fracture. IMPRESSION: 1. No acute intracranial abnormality. 2. Moderate-sized left maxillary sinus retention cyst, similar to prior MR Brain 07/26/2018. /[place]
[2024-12-17 20:00] VITALS: BP 144/83; PULSE 53; RESP 18; TEMP 98.4; O2SAT 100
[2024-12-17 23:00] VITALS: BP 123/67; PULSE 57; RESP 18; TEMP 98.2
[2024-12-18 04:00] VITALS: BP 102/61; PULSE 53; RESP 18; TEMP 98.2
[2024-12-18 07:00] VITALS: BP 129/83; PULSE 59; RESP 20; TEMP 97.7
[2024-12-18 08:00] VITALS: O2SAT 98
--- NOTE | 2024-12-18 10:54 | DS ---
Discharge Summary Hospital Course Summary: Patient was admitted due to AFib with a RVR. Cardiology was consulted who decrease the patient was metoprolol increase the patient was flecainide. The patient was palpitations resolved although he complained of severe headache. CT of the head did not show any acute intracranial abnormalities although demo nstrated a moderate-size left maxillary sinus retention cysts similar to that seen in MR brain in 2019. Advised patient to follow up with the ENT for the cyst. Final Cardiology recommendations: Addendum: We have received a copy of the CCTA report and there was no evidence of obstructive coronary artery disease. Since reducing his metoprolol to 12-1/2 twice a day and increasing flecainide to 100 mg twice a day he has had no arrhythmias and no recurrent bradycardia. He does complain of headaches since admission. Because of persistent right-sided headaches unrelieved with Tylenol I would recommend a CT scan of the head without contrast. If this shows no abnormalities he can be discharged home and follow up with Dr. Hitesh Mcgee and his primary physician for further evaluation and treatment. If he continues to have frequent breakthrough arrhythmias in the future he may be a candidate for AFib ablation. The decision was made to discharge the patient to follow up with PCP Cardiology and ENT. Medications as per med rec. Automatic Machine Attendant(s): Cardiology Assessment/Plan: ASSESSMENT: Atrial fibrillation with RVR, POA, currently sinus LVEF 50-55%, low normal LV systolic function, grade 1 diastolic dysfunction, per echo in 06/01/2020 Palpitations Severe hypokalemia, POA Hypertension Diabetes mellitus with hyperglycemia Acute on chronic kidney disease, GFR 80 (GFR 81 on 09/14/24) Obesity, BMI 36.1 History of gout PLAN: -Admit to medical floor with continuous telemetry monitoring. -Follow up CT head -Follow up with Cardiology consult in the am. -Continue metoprolol 12.5mg BID -Continue flecainide -PRN medications for pain management, fever, N/V, constipation, hypertension. -Oxygen supplement as needed to maintain oxygen levels equal to or greater than 92% -Nitroglycerin sublingual as needed chest pain -Aspirin 81 mg p.o. daily. -Atorvastatin 40 mg PO daily. -Strict I&O. -Blood pressure checks every 4 hours and as needed. -Reconcile home medications once available. -Glucometer checks before meals and at bedtime with insulin regular sliding scale. -Blood pressure checks every 4 hours and as needed. - Monitor renal and liver function. -Monitor electrolytes and treat accordingly PRN -AM labs. -GI and DVT prophylaxis -Further plan/orders per hospitalization course. Home Medications: Active Scripts Flecainide Acetate (Flecainide Acetate) 50 Mg Tablet, 50 MG PO BID for 30 Days, #60 TAB 1 Refill Prov:ADILENE DUTTON 06/02/20 Reported Medications Colchicine (Colchicine) 0.6 Mg Capsule, 1 CAP PO BID for 30 Days, #60 CAP 0 Refills 12/16/24 Tirzepatide (Mounjaro) 10 Mg/0.5 Ml Pen.injctr, 10 MG SQ QWEEK 12/16/24 Aspirin (ASPIRIN 81MG CHEW TAB) 81 Mg Tab.chew, 1 TAB PO DAILY for 30 Days, #30 TAB 0 Refills 12/16/24 Metoprolol Succinate (Metoprolol Succinate) 25 Mg Tab.er.24h, 25 MG PO BID, TAB 12/16/24 Discontinued Scripts Aspirin (Aspirin EC) 325 Mg Tablet.dr, 325 MG PO DAILY for 30 Days, #30 TAB 1 Refill Prov:ADILENE DUTTON 06/02/20 Metoprolol Succinate (Metoprolol Succinate) 50 Mg Tab.er.24h, 75 MG PO DAILY for 30 Days, #45 TAB 1 Refill Prov:ADILENE DUTTON 06/02/20 Time spent arranging discharge: 31-60 minutes JENNIFER CROOK IV, MD Dec 18, 2024 10:54
[2024-12-18 11:00] VITALS: BP 143/86; PULSE 61; RESP 20; TEMP 98
[2024-12-18] MEDS ORDERED: PoTASSium chloRIDE 20MEQ ER 20 MEQ ERTAB PO ONE (13:00)
--- NOTE | 2024-12-18 13:22 | NUR ---
DISCHARGE HOME IV,TELEPAK, AND ID BANDS REMOVED. DISCHARGE INSTRUCTIONS GIVEN AND EXPLAINED TO PATIENT. PATIENT WHEELED DOWN TO PRIVATE CAR.
== END 2024-12-18 13:30 | disposition home or self-care (01) | DRG 309 ==
LOC: EDH 00:02 → EDHIP 01:20 → 2AH 11:27
PROVIDERS: ADMIT Internal Medicine; ATTEND Internal Medicine
DX: I48.0 Paroxysmal atrial fibrillation (principal); N17.9 Acute kidney failure, unspecified; E11.22 Type 2 diabetes mellitus with diabetic chronic kidney disease; E11.65 Type 2 diabetes mellitus with hyperglycemia; I12.9 Hypertensive chronic kidney disease with stage 1 through stage 4 chronic kidney disease, or unspecified chronic kidney disease; N18.9 Chronic kidney disease, unspecified; E87.6 Hypokalemia; K59.00 Constipation, unspecified; E66.9 Obesity, unspecified; K21.9 Gastro-esophageal reflux disease without esophagitis; Z79.82 Long term (current) use of aspirin; Z79.899 Other long term (current) drug therapy; Z82.49 Family history of ischemic heart disease and other diseases of the circulatory system; Z68.35 Body mass index [BMI] 35.0-35.9, adult
CPT/HCPCS: 36415; 70450; 71045; 76376; 80048; 80061; 80305; 81003; 82550; 82948; 83735; 83880; 84100; 84443; 84484; 85025; 85027; 87086; 87635; 87804; 87880; 93005; 93306; 93356; 96365; 99285; G0378; J3480